=== PATIENT | male | born 1995 | race Caucasian/White ===

== ENCOUNTER 2017-11-19 23:57 | Emergency (ER) | payer SELFPAY ==
[~2017-11-19] VITALS: Ht 165.1 cm; Wt 80.0 kg
[2017-11-20 00:01] VITALS: BP 134/85; PULSE 88; TEMP 36.8; O2SAT 99; Ht 165.1 cm; Wt 80.0 kg
--- NOTE | 2017-11-20 00:18 | EMERGENCY ROOM VISIT NOTE ---
History Report prepared by Narenibalejandro: Lila May Under the Supervision of: Dr. Bony Moreira M.D. First contact with patient: 00:09 Chief Complaint: RASH Stated Complaint: RASH History of Present Illness The patient is a 22 year old male who presents to the Emergency Room with complaints persistent of scratch-like rashes to his chest since this evening. He denies scratching himself. He states that he was getting undressed and noticed the rash this evening. He denies moving any brush or tree-like material. He reports thyroid problems for which he takes vitamins. He reports a wound on his left hand due to sport-like activity. 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 He is visiting family from [place]. Per family, the patient was complaining of skin itching two days ago. Source of History: patient, family Onset: since this evening Position: chest Quality: other (scratch-like rash) Timing: other (persistent) Note: Notes wound to left hand. Notes itchy skin. Review of Systems See HPI for pertinent positives & negatives. A total of 6 systems reviewed and were otherwise negative. Past Medical & Surgical No other pertinent personal past medical history obtained. Family History No pertinent family history Social History Smoking Status: Unknown if Ever Smoked Smokeless Tobacco Use: No Marital Status: single Housing Status: lives with family Occupation Status: employed Current/Historical Medications No Active Prescriptions or Reported Meds Allergies Coded Allergies: No Known Allergies (Unverified , 11/20/17) Physical Exam Vital Signs Date Time Temp Pulse Resp B/P (MAP) Pulse Ox O2 Delivery O2 Flow Rate FiO2 11/20/17 00:01 36.8 88 18 134/85 99 Room Air Physical Exam GENERAL: Patient is well appearing and in no acute distress. EYES: No scleral icterus, unremarkable pupils. RESPIRATORY: No dyspnea. Clear to auscultation and equal bilaterally. No wheeze , no rhonchi. CARDIOVASCULAR: Regular rate and rhythm. No murmurs, rubs, gallops appreciated. EXTREMITIES: Normal motion all extremities, no cyanosis, no edema. Healing abrasion of left fifth MCP joint. NEUROLOGIC: Alert and oriented, no acute motor or sensory deficits, no focal weakness, cranial nerves grossly intact. SKIN: No rash, no jaundice, no diaphoresis. Linear abrasions over right chest and right flank, dry skin over abdomen and left flank. Medical Decision & Procedures ED Course 0012: The patient was evaluated in room A3. A complete history and physical exam was performed. I discussed the results and treatment plan with the patient. I answered all pertaining questions that he had. He expressed understanding and verbalized agreement. The patient will be discharged home. Medical Decision 22 yr old male from [place] visiting family here who notes rash of chest and flank. Clearly linear excoriations from fingers that match right hand location. He has some dry skin which I suspect is itching him and thus he scratches himself. This is not consistent with scabies/mites, dermatitis, nor other. Advised using Benadryl if itching, but more likely to help will be lotions and non-drying soaps. Small scab left 5th knuckle that is not currently infected. Discussed return if worsening. Medication Reconcilliation Current Medication List: was personally reviewed by me Blood Pressure Screening Patient's blood pressure: Elevated blood pressure Blood pressure disposition: Elevated BP felt to be situational Impression Primary Impression: Multiple excoriations Additional Impression: Dry skin dermatitis Scribe Attestation The scribe's documentation has been prepared under my direction and personally reviewed by me in its entirety. I confirm that the note above accurately reflects all work, treatment, procedures, and medical decision making performed by me. Departure Information Dispostion Home / Self-Care Prescriptions No Active Prescriptions or Reported Meds Referrals No Doctor, Assigned (PCP) Forms HOME CARE DOCUMENTATION FORM, IMPORTANT VISIT INFORMATION, WORK / SCHOOL INSTRUCTIONS Patient Instructions My [facility] Additional Instructions Use Benadryl (diphenhydramine) 50mg every 8 hours as needed for itching. Use a non-drying soap and after showering apply moisturizer. Monitor for spreading rash, drainage, pain, or other concerns and consult medical professional if these develop. Problem Qualifiers
== END 2017-11-20 00:31 | disposition home or self-care (01) ==
LOC: C.EDB 11-20 00:02 → C.EDA 11-20 00:31
DX: S20.411A Abrasion of right back wall of thorax, initial encounter (principal); X58.XXXA Exposure to other specified factors, initial encounter; L30.9 Dermatitis, unspecified